=== PATIENT | male | born 1965 | race Hispanic/Latino ===

== ENCOUNTER 2022-05-15 17:54 | Emergency (ER) | payer OTHER ==
[2022-05-15] MEDS ORDERED: ACETAMINOPHEN 500 MG TABLET PO STA (18:56)
[2022-05-15] MEDS ORDERED: IBUP-1493 PO (20:48)
[2022-05-15] MEDS ORDERED: CYCL-309 PO (20:48)
[2022-05-15 20:50] VITALS: BP 134/79
== END 2022-05-15 20:53 | disposition home or self-care (01) ==
LOC: EDH 17:54
DX: M54.2 Cervicalgia (principal); M54.6 Pain in thoracic spine; V89.2XXA Person injured in unspecified motor-vehicle accident, traffic, initial encounter; Y93.19 Activity, other involving water and watercraft; Y92.410 Unspecified street and highway as the place of occurrence of the external cause; Y99.8 Other external cause status
CPT/HCPCS: 70450; 72125; 72128